=== PATIENT | male | born 1965 | race Caucasian/White ===

== ENCOUNTER 2017-03-14 01:33 | Emergency (ER) | payer BC, OTHER ==
[~2017-03-14] VITALS: Ht 175.3 cm; Wt 93.5 kg
[~2017-03-14 01:33] MED LIST: MULT-506 PO; NAPR1TAB9 PO
[2017-03-14 01:34] VITALS: TEMP 36.5; Ht 175.3 cm; Wt 93.5 kg
[2017-03-14] MEDS ORDERED: SODIUM CHLORIDE 0.9% 500ML 500 ML IV STA (01:48)
[2017-03-14] MEDS ORDERED: MoRPHine SULFATE 4 MG/ML 1 ML CARP\\VIAL IV STA (01:48)
[2017-03-14] MEDS ORDERED: SODIUM CHLORIDE 0.9% 1000ML 1,000 ML IV STA (01:48)
[2017-03-14] MEDS ORDERED: ONDANSETRON INJ 2 MG/ML 2 ML VIAL IV STA (01:48)
[2017-03-14 01:57] LABS: BASO % 0.2 %; BASO ABS # 0.02 K/uL (0-0.2); COMPLETE YES; EOS % 2.7 %; HEMATOCRIT 38.9 % (42-52); IG% 0.1 %; LYMPH % 19.9 %; LYMPH ABS # 1.88 K/uL (1.2-3.4); MEAN CELL VOLUME 91.3 fL (80-100); MEAN CORPUSCULAR HEMOGLOBIN 30.8 pg (25-34); MEAN CORPUSCULAR HGB CONC 33.7 g/dl (32-36); MEAN PLATELET VOLUME 10.5 fL (7.4-10.4); MONO % 5.7 %; NEUT % 71.4 %; PLATELET COUNT 223 K/uL (130-400); RED BLOOD COUNT 4.26 M/uL (4.7-6.1); WHITE BLOOD COUNT 9.47 K/uL (4.8-10.8)
[2017-03-14] MEDS ORDERED: LORAZEPAM 2 MG/ML 1 ML VIAL IV STA (02:05)
[2017-03-14 02:12] VITALS: O2SAT 97
[2017-03-14 02:18] LABS: ALT/SGPT 37 U/L (12-78); AST/SGOT 18 U/L (15-37); BLOOD UREA NITROGEN 19 mg/dl (7-18); CALCIUM 8.9 mg/dl (8.5-10.1); CARBON DIOXIDE 27 mmol/L (21-32); CHLORIDE 107 mmol/L (98-107); GLUCOSE 131 mg/dl (70-99); POTASSIUM 3.9 mmol/L (3.5-5.1); SODIUM 140 mmol/L (136-145)
[2017-03-14 02:24] LABS: ALKALINE PHOSPHATASE 79 U/L (45-117)
--- NOTE | 2017-03-14 03:35 | EMERGENCY ROOM VISIT NOTE ---
History First contact with patient: 01:40 Chief Complaint: ABDOMINAL PAIN Stated Complaint: SEVERE PAIN IN ABDOMEN AND NAUSEA History of Present Illness The patient is a 51 year old male who presents to the Emergency Room with complaints of right upper quadrant pain with nausea since 6:30 tonight after eating dinner. Patient had fish sticks and mashed potatoes. He describes the pain as aching, ranging in severity 6 out of 10. Nothing makes it better or worse. Patient denies chest pain, dyspnea, fever, chills, vomiting, diarrhea, back pain, urinary symptoms. No history similar symptoms in the past. Normal bowel movements. He is status post appendectomy a decade ago. Review of Systems See HPI for pertinent positives & negatives. A total of 10 systems reviewed and were otherwise negative. Past Medical/Surgical History Appendectomy Social History Smoking Status: Former Smoker Alcohol Use: occasionally Drug Use: none Marital Status: Housing Status: lives with family Occupation Status: employed Current/Historical Medications No Active Prescriptions or Reported Meds Allergies Coded Allergies: No Known Allergies (Unverified , 03/14/17) Physical Exam Vital Signs Date Time Temp Pulse Resp B/P Pulse Ox O2 Delivery O2 Flow Rate FiO2 03/14/17 02:59 59 16 126/81 96 Room Air 03/14/17 02:12 97 Room Air 03/14/17 01:56 62 03/14/17 01:34 36.5 61 20 118/65 97 Room Air Physical Exam VITALS: Vitals are noted on the nurse's note and reviewed by myself. Vital signs stable. GENERAL: Pleasant male in obvious pain, nondiaphoretic, well-developed well- nourished. SKIN: The skin was without rashes, erythema, edema, or bruising. There is no tenting of the skin. Capillary reflex less than 2 seconds. HEAD: Normocephalic atraumatic. EARS: External auditory canals clear, tympanic membranes pearly ferris without erythema or effusion bilaterally. EYES: Pupils equal round and reactive to light and accommodation. Conjunctivae without injection, sclerae without icterus. Extraocular movements intact. NOSE: Patent, turbinates without inflammation or discharge. MOUTH: Mucous membranes moist. Pharynx without erythema or exudate. Uvula midline. Airway patent. Tongue does not deviate. NECK: Supple without nuchal rigidity. No lymphadenopathy. No thyromegaly. Cervical spine is nontender. No JVD. HEART: Regular rate and rhythm without murmurs gallops or rubs. LUNGS: Clear to auscultation bilaterally without wheezes, rales or rhonchi. No dullness to percussion. No retractions or accessory muscle use. ABDOMEN: Positive bowel sounds x 4. Normal tympanic percussion. Soft, tender to palpation right upper quadrant, no CVA tenderness, without masses or organomegaly. No guarding or rebound tenderness. MUSCULOSKELETAL: No muscle atrophy, erythema, or edema noted. NEURO: Patient was alert and oriented to person place and time. Normal sensation to light and sharp touch. No focal neurological deficits. Medical Decision & Procedures Laboratory Results 03/14/17 01:44 Red Blood Count 4.26, Mean Corpuscular Volume 91.3, Mean Corpuscular Hemoglobin 30.8, Mean Corpuscular Hemoglobin Concent 33.7, Mean Platelet Volume 10.5, Neutrophils (%) (Auto) 71.4, Lymphocytes (%) (Auto) 19.9, Monocytes (%) (Auto) 5.7, Eosinophils (%) (Auto) 2.7, Basophils (%) (Auto) 0.2, Neutrophils # (Auto) 6.76, Lymphocytes # (Auto) 1.88, Monocytes # (Auto) 0.54, Eosinophils # (Auto) 0.26, Basophils # (Auto) 0.02 03/14/17 01:44 Test 03/14/17 01:44 White Blood Count 9.47 K/uL (4.8-10.8) Red Blood Count 4.26 M/uL (4.7-6.1) Hemoglobin 13.1 g/dL (14.0-18.0) Hematocrit 38.9 % (42-52) Mean Corpuscular Volume 91.3 fL (80-100) Mean Corpuscular Hemoglobin 30.8 pg (25-34) Mean Corpuscular Hemoglobin Concent 33.7 g/dl (32-36) Platelet Count 223 K/uL (130-400) Mean Platelet Volume 10.5 fL (7.4-10.4) Neutrophils (%) (Auto) 71.4 % Lymphocytes (%) (Auto) 19.9 % Monocytes (%) (Auto) 5.7 % Eosinophils (%) (Auto) 2.7 % Basophils (%) (Auto) 0.2 % Neutrophils # (Auto) 6.76 K/uL (1.4-6.5) Lymphocytes # (Auto) 1.88 K/uL (1.2-3.4) Monocytes # (Auto) 0.54 K/uL (0.11-0.59) Eosinophils # (Auto) 0.26 K/uL (0-0.5) Basophils # (Auto) 0.02 K/uL (0-0.2) RDW Standard Deviation 41.3 fL (36.4-46.3) RDW Coefficient of Variation 12.4 % (11.5-14.5) Immature Granulocyte % (Auto) 0.1 % Immature Granulocyte # (Auto) 0.01 K/uL (0.00-0.02) Anion Gap 6.0 mmol/L (3-11) Est Creatinine Clear Calc Drug Dose 89.7 ml/min Estimated GFR () 89.6 Estimated GFR (Non- 77.3 BUN/Creatinine Ratio 17.0 (10-20) Calcium Level 8.9 mg/dl (8.5-10.1) Total Bilirubin 0.3 mg/dl (0.2-1) Direct Bilirubin < 0.1 mg/dl (0-0.2) Aspartate Amino Transf (AST/SGOT) 18 U/L (15-37) Alanine Aminotransferase (ALT/SGPT) 37 U/L (12-78) Alkaline Phosphatase 79 U/L (45-117) Troponin I < 0.015 ng/ml (0-0.045) Total Protein 7.1 gm/dl (6.4-8.2) Albumin 3.8 gm/dl (3.4-5.0) Lipase 95 U/L (73-393) Medications Administered Medications (Trade) Dose Ordered Sig/Rishi Route Start Time Stop Time Status Last Admin Dose Admin Sodium Chloride 500 ml @ 999 mls/hr Q31M STAT IV 03/14/17 01:48 03/14/17 02:18 DC 03/14/17 02:00 999 MLS/HR Sodium Chloride (Nss 1000ml) 1,000 ml @ 125 mls/hr Q8H STAT IV 03/14/17 01:48 03/14/17 09:47 03/14/17 02:00 125 MLS/HR Morphine Sulfate (MoRPHine SULFATE INJ) 4 mg NOW STAT IV 03/14/17 01:48 03/14/17 01:50 DC 03/14/17 02:00 4 MG Ondansetron HCl (Zofran Inj) 4 mg NOW STAT IV 03/14/17 01:48 03/14/17 01:50 DC 03/14/17 02:00 4 MG Lorazepam (Ativan Inj) 1 mg NOW STAT IV 03/14/17 02:05 03/14/17 02:06 DC 03/14/17 02:08 1 MG ED Course Prior records/ancillary studies reviewed. Triage Nursing notes reviewed. Additional history obtained from family. The patient's history was concerning for abdominal pain. Differential diagnosis: Etiologies such as appendicitis, diverticulitis, PUD, biliary pathology, UTI, pancreatitis, obstruction, mesenteric ischemia, aortic pathology, infections, inflammatory bowel disease, renal colic, as well as others were entertained. Physical examination findings: As above. ER treatment provided: Morphine, Zofran, IV fluids On reassessment the patient felt better. Diagnostics interpreted by me: ECG: Normal sinus, normal intervals, no acute ST-T wave changes. Impression normal sinus rhythm interpreted by myself The labs revealed no worrisome leukocytosis or electrolyte abnormality Imaging studies: Ultrasound shows cholelithiasis without cholecystitis Chest x-ray with no acute consolidation, pneumothorax or free air per my interpretation Exam and history seem consistent with biliary colic. Patient was advised to do an outpatient hida scan and follow-up with surgery. He was advised to do a low- fat healthy diet. He is advised to return to the ER immediately for abdominal pain, fevers, vomiting, worsening signs or symptoms or as needed. Patient's pain was resolved. He felt much better. He requested to leave. I felt this is reasonable.. By the evaluation outlined above emergent etiologies such as appendicitis, diverticulitis, PUD, UTI, pancreatitis, obstruction, mesenteric ischemia, aortic pathology, infections, inflammatory bowel disease, renal colic , as well as others were deemed relatively unlikely. The pt informed about the findings as listed above. All questions were answered and pleased with the treatment. Return instructions were outlined and the patient was discharged in stable condition. Outpatient prescription management: zofran Referral: The patient was referred back to their primary care physician for follow-up in 2 to 3 days for a recheck of the current condition. Case reviewed with my attending Medical Decision As above Impression Primary Impression: Biliary colic Departure Information Dispostion Home / Self-Care Condition GOOD Prescriptions No Active Prescriptions or Reported Meds Referrals No Doctor, Assigned (PCP) Patient Instructions My [facility] Additional Instructions Recommend HIDA scan. Recommend low-fat healthy diet. Avoid fatty foods. Ibuprofen(Motrin, Advil) may be used for fever or pain. Use 600mg every six hours as needed. Take with food. Avoid using more than 2400mg in a 24 hour period. Do not use 2400mg per day for more than three consecutive days without physician direction. Prolonged inappropriate use can lead to stomach upset or ulcers. (AND/OR) Acetaminophen(Tylenol) may be used for fever or pain. Use 1000mg every six hours as needed. Avoid using more than 3000mg in a 24 hour period. Rest and drink plenty of fluids as tolerated. Continue current medications. Avoid strenuous activities and anything that worsens your pain. Resume normal activities once your symptoms resolve. Return to the ER immediately for worsening or persistent abdominal pain, vomiting, fevers, chest pains, difficulty breathing, worsening of your condition , or as needed. Follow up with your primary physician in 2-3 days for a recheck of your current condition.
[2017-03-14] MEDS ORDERED: OXYCODONE IR HOME PACK PO ONE (03:45)
[2017-03-14] MEDS ORDERED: ONDANSETRON HOME PACK 4MG OD TAB PO ONE (03:45)
[2017-03-14 04:20] VITALS: BP 104/69; PULSE 59; O2SAT 95
--- NOTE | 2017-03-14 06:51 | DIAGNOSTIC IMAGING REPORT ---
CHEST ONE VIEW PORTABLE CLINICAL HISTORY: CHEST PAIN dyspnea COMPARISON STUDY: No previous studies for comparison. FINDINGS: The bones soft tissues and hemidiaphragms are normal. The cardiomediastinal silhouette is normal. The lungs are clear. The pulmonary vasculature is normal. IMPRESSION: Negative chest. Electronically signed by: Azael Gomez M.D. 03/14/2017 6:50 AM Dictated Date/Time: 03/14/2017 6:50 AM
--- NOTE | 2017-03-14 07:16 | DIAGNOSTIC IMAGING REPORT ---
Right upper quadrant ultrasound GALLBLADDER-ABD LIMITED CLINICAL HISTORY: rug pain, ? GB pain. Nausea. TECHNIQUE: Ultrasound: FINDINGS: Several gallstones, sludge, gallbladder polyps. Common bile duct 4 mm.. Fatty infiltration of liver. Pancreas and right kidney are unremarkable. IMPRESSION: Gallstone/sludge/gallbladder polyps. Normal caliber bile ducts. Mild fatty infiltration of liver. Electronically signed by: Azael Gomez M.D. 03/14/2017 7:15 AM Dictated Date/Time: 03/14/2017 7:12 AM
== END 2017-03-14 04:20 | disposition home or self-care (01) ==
LOC: C.EDB 01:34
DX: K80.50 Calculus of bile duct without cholangitis or cholecystitis without obstruction (principal); Z98.890 Other specified postprocedural states; Z87.891 Personal history of nicotine dependence